=== PATIENT | male | born 1970 ===

== ENCOUNTER 2017-08-05 09:32 | Day surgery (SDC) | payer OTHER ==
[~2017-08-05 09:32] MED LIST: INDERAL LA80 MG PO; LISINOPRIL20 MG PO; SIMVASTATIN10 MG PO
== END 2017-08-05 19:25 | disposition home or self-care (01) ==
LOC: CIR.AMB 09:32
DX: K40.90 Unilateral inguinal hernia, without obstruction or gangrene, not specified as recurrent (principal)